=== PATIENT | male | born 2000 ===

== ENCOUNTER → 2022-01-06 13:00 | Outpatient (CLI) | payer OTHER, SELFPAY ==
--- NOTE | 2022-01-06 13:17 | DI.RAD.S_ITS ---
PROCEDURE: XR THORACIC SPINE 3V INDICATIONS: Unspecified injury of lower back, initial encounter TECHNIQUE: 3 views of the thoracic spine were acquired. COMPARISON: None. FINDINGS: Bones: No fractures or dislocations. No suspicious bony lesions. Twelve pairs of ribs are noted, and appear intact where visualized. Soft tissues: No paravertebral stripe thickening. IMPRESSION: No fracture. No osseous lesion. If symptoms and/or clinical suspicion for pathology persists, evaluation with MRI should be considered for further assessment. Dictated by: Guerline Clinton MD, PhD on 01/06/2022 at 15:15 Approved by: Guerline Clinton MD, PhD on 01/06/2022 at 15:16
--- NOTE | 2022-01-06 13:18 | DI.RAD.S_ITS ---
PROCEDURE: XR LUMBAR SPINE 2-3V INDICATIONS: Unspecified injury of lower back, initial encounter TECHNIQUE: 3 views of the lumbar spine were acquired. COMPARISON: None. FINDINGS: Bones: 5 [id number] vertebrae are present. There is normal bony alignment. No vertebral body compression fractures. No suspicious bony lesions. Soft tissues: Overlying bowel gas pattern is normal. No suspicious soft tissue calcifications. Cholecystectomy clips. IMPRESSION: No fracture. No osseous lesion. If symptoms and/or clinical suspicion for pathology persists, evaluation with MRI should be considered for further assessment. Dictated by: Guerline Clinton MD, PhD on 01/06/2022 at 15:14 Approved by: Guerline Clinton MD, PhD on 01/06/2022 at 15:15
== END ==
PROVIDERS: Referring Provider Family Medicine; Visit Provider Family Medicine
DX: S39.92XA Unspecified injury of lower back, initial encounter (principal)
CPT/HCPCS: 72072; 72100